=== PATIENT | male | born 1950 | race Caucasian/White ===

== ENCOUNTER → 2020-02-24 | Outpatient (CLI) | payer BC | LOC: ZCOL.LAB 17:21 | DX: Z01.89 Encounter for other specified special examinations (principal) ==

== ENCOUNTER → 2020-02-24 | Outpatient (CLI) | payer BC | LOC: ZCOL.LAB 17:19 | DX: Z01.89 Encounter for other specified special examinations (principal) ==

== ENCOUNTER → 2023-12-18 | Outpatient (CLI) | payer MEDICARE ==
[~2023-12-18] MED LIST: COZAAR100 MG PO; FLONASEALLERGY NS; GLUCOPHAGE500 MG/TAB PO; INDERAL LA160 MG PO; Iohexol 300 - 100 ML VIAL IV ONE; LIPITOR 40MG TA40 MG PO; NORVASC 5MG5 MG/TAB PO; TRICOR145 MG PO
== END ==
LOC: COL.RAD 13:01
DX: J84.10 Pulmonary fibrosis, unspecified (principal); J47.9 Bronchiectasis, uncomplicated; I51.7 Cardiomegaly
CPT/HCPCS: Q9967

== ENCOUNTER 2024-01-01 12:21 | Inpatient (IN) | payer MEDICARE ==
[~2024-01-01] VITALS: Ht 180.3 cm; Wt 65.6 kg
[2024-01-01 13:01] LABS: BASO % 0.4 % (0.0-2.0); EOS % 0.1 % (0.0-4.0); GRAN # 9.3 K/mm3 (1.4-6.5); GRAN % 88.2 % (42.2-75.2); HEMATOCRIT 46.4 % (42.0-52.0); HEMOGLOBIN 15.3 g/dl (13.5-18.0); LYMPH # 0.8 K/mm3 (1.2-3.4); LYMPH % 7.4 % (20.0-51.0); MEAN CELL VOLUME 91 fl (80.0-100.0); MEAN CORPUSCULAR HEMOGLOBIN 30 pg (27-31); MEAN CORPUSCULAR HGB CONC 33 g/dl (33.0-37.0); MONO # 0.4 K/mm3 (0.1-0.6); MONO % 3.5 % (1.7-9.3); PLATELET COUNT 282 K/mm3 (130-400); RED BLOOD COUNT 5.08 M/mm3 (4.20-5.60); REDCELL DISTRIBUTION WIDTH-CV 14.5 % (11.5-14.5)
[2024-01-01 13:12] LABS: ALANINE AMINOTRANSFERASE 12 U/L (0-55); ALBUMIN 3.6 g/dL (3.4-4.8); ALKALINE PHOSPHATASE 46 U/L (40-150); ANION GAP 12 mmol/L (7-16); AST,SGOT 19 U/L (5-34); BILIRUBIN,TOTAL 0.9 mg/dL (0.2-1.2); BLOOD UREA NITROGEN 18 mg/dL (8-26); CALCIUM 9.8 mg/dL (8.4-10.2); CHLORIDE 103 mEq/L (98-107); CREATININE, serum 0.81 mg/dL (0.72-1.25); GLUCOSE 116 mg/dL (70-99); POTASSIUM 3.8 mEq/L (3.5-4.5); SODIUM 142 mEq/L (136-145); TOTAL PROTEIN 7.1 g/dl (6.2-8.1)
[2024-01-01 13:20] LABS: TROPONIN-I < 0.010 ng/mL (0.00-0.033)
[2024-01-01] MEDS ORDERED: LIPITOR 40MG TA40 MG PO (14:53)
[2024-01-01] MEDS ORDERED: COZAAR100 MG PO (14:53)
[2024-01-01] MEDS ORDERED: INDERAL LA160 MG PO (14:59)
[2024-01-01] MEDS ORDERED: NORVASC 5MG5 MG/TAB PO (15:00)
[2024-01-01] MEDS ORDERED: GLUCOPHAGE500 MG/TAB PO (15:01)
[2024-01-01] MEDS ORDERED: TRICOR145 MG PO (15:01)
[2024-01-01] MEDS ORDERED: Ondansetron 4 MG/2 ML VIAL IV PRN ×2 (15:30→17:45)
[2024-01-01] MEDS ORDERED: Morphine 4 MG/ML VIAL IV PRN ×2 (15:30→18:00)
[2024-01-01] MEDS ORDERED: Acetaminophen 325 MG TAB PO PRN ×2 (15:30→17:45)
[2024-01-01] MEDS ORDERED: Melatonin 3 MG TAB PO PRN ×2 (15:30→18:00)
[2024-01-01 17:00] VITALS: BP_SYST 157
[2024-01-01] MEDS ORDERED: Insulin Lispro (HumaLOG) SQ SCH ×2 (17:00→21:00)
[2024-01-01 17:21] VITALS: BP 157/84; PULSE 62; TEMP 97.5
[2024-01-01] MEDS ORDERED: NS 1,000 ML IV SCH (17:45)
[2024-01-01 19:49] LABS: MAGNESIUM 1.5 mg/dL (1.6-2.6); PHOSPHOROUS 3.3 mg/dL (2.3-4.7)
[2024-01-01 20:16] VITALS: BP 151/81; PULSE 69; TEMP 97.7
[2024-01-01 21:00] VITALS: BP_SYST 156
[2024-01-01] MEDS ORDERED: Atorvastatin 40 MG TAB PO SCH ×2 (21:00)
[2024-01-01 23:40] VITALS: BP 156/81; PULSE 58; TEMP 97.5
[2024-01-02] VITALS (12 sets, daily range): BP systolic 133–172; BP diastolic 81–94; PULSE 51–69; TEMP 97.3–97.7
[2024-01-02 06:29] LABS: ALBUMIN 2.9 g/dL (3.4-4.8); BILIRUBIN,TOTAL 0.8 mg/dL (0.2-1.2); CALCIUM 8.9 mg/dL (8.4-10.2); CREATININE, serum 0.72 mg/dL (0.72-1.25); TOTAL PROTEIN 5.3 g/dl (6.2-8.1)
[2024-01-02 07:28] LABS: BASO % 0.3 % (0.0-2.0); EOS # 0.1 K/mm3 (0.0-0.7); EOS % 0.6 % (0.0-4.0); GRAN # 5.9 K/mm3 (1.4-6.5); GRAN % 66.3 % (42.2-75.2); HEMATOCRIT 41.2 % (42.0-52.0); HEMOGLOBIN 13.9 g/dl (13.5-18.0); LYMPH # 1.9 K/mm3 (1.2-3.4); LYMPH % 21.8 % (20.0-51.0); MEAN CELL VOLUME 90 fl (80.0-100.0); MEAN CORPUSCULAR HEMOGLOBIN 30 pg (27-31); MEAN CORPUSCULAR HGB CONC 34 g/dl (33.0-37.0); MONO % 10.7 % (1.7-9.3); PLATELET COUNT 222 K/mm3 (130-400); REDCELL DISTRIBUTION WIDTH-CV 14.4 % (11.5-14.5)
[2024-01-02] MEDS ORDERED: Glucagon 1 MG VIAL IM PRN (07:30)
[2024-01-02] MEDS ORDERED: Dextrose (Glucose) 15 GM (4 x 3.75 GM) Chewable TABLET PACK PO PRN (07:30)
[2024-01-02] MEDS ORDERED: Dextrose 50% Water 25 GM/50 ML SYRINGE IV PRN (07:30)
--- NOTE | 2024-01-02 08:16 | NUR ---
PATIENT SITTING ON EDGE OF BED THIS MORNING. COMPLAINS OF SLIGHT SHORTNESS OF BREATH. EXPEREINCING SLIGHT GRUNT ON EXPIRATION. NO C/O PAIN. SLIGHT DICOMFORT NOTED AT SITE OF CHEST TUBE.
[2024-01-02] MEDS ORDERED: Fenofibrate (Tricor) 145 MG **** subs to Fenofibrate (Lofibra) 162 MG PO SCH (09:00)
[2024-01-02] MEDS ORDERED: Fenofibrate 54 MG TABLET PO SCH ×2 (09:00)
[2024-01-02] MEDS ORDERED: Losartan 50 MG TAB PO SCH ×2 (09:00)
[2024-01-02] MEDS ORDERED: amLODIPine 5 MG TAB PO SCH ×2 (09:00)
--- NOTE | 2024-01-02 09:50 | NUR ---
NOTIFIED OF INCREASED RIGHT PNEUMO ON AM CXR. CHEST TUBE INPLACE TO 20 OF SUCTION, DOES NOT APPEAR TO BE CLAMPED OR KINKED, NO BUBBLING NOTED. NOTED 45CC OF BLOODY DRAINAGE IN CHEST TUBE. PATIENT DENIES SOA AT REST, DOES REPORT MILD SOA WITH ACTIVITY BUT HE SAID THAT HAS BEEN THE SAME, NO CHANGE. O2 SATS IN MID 90'S ON RA. VSS. HR IRREGULAR IN THE 50-60'S ON TELE. AIR EXCHANGE HEARD IN RIGHT POSTERIOR LUNG. HOSPITALIST ALSO AWARE. TO ROUND IN APPROX 1-1.5 HOURS. PATIENT RESTING UP IN BED WITH NO NEEDS, NO DISTRESS. STUDENT NURSE ALSO WORKING WITH PATIENT TODAY, SEE CHARTING.
--- NOTE | 2024-01-02 09:59 | NUR ---
Beef Grinder met with patient to discuss discharge planning. Patient lives alone in [place] and sees Dr. Hart for primary care. Patient obtains medications from [facility] and has a cane to assist with ambulation as needed. Patient uses no other DME and is independent with ADLS. Patient stated his only child, Fernandez (ph#[phone]) is his DPOA-HC. 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 Patient plans to return home at time of discharge. Discharge Plan: Home
[2024-01-02] MEDS ORDERED: Cetirizine 10 MG TAB PO SCH (11:00)
[2024-01-02] MEDS ORDERED: Fluticasone Nasal 50 MCG/Spray 16 GM BOTTLE NS SCH (11:00)
--- NOTE | 2024-01-02 11:18 | NUR ---
D: Initial visit: Rvda Master Certified Rv Technician stopped by room on rounds. Pt was resting and content. A: Pt is excited to get back home. Has worked in the area all his life. Retired a few years ago. First time in the hospital. He states he has no needs right now. Pt appreciated the visit. P: Rvda Master Certified Rv Technician informed the pt that if he needed anything from the agent telegrapher area to let his nurse know. Rvda Master Certified Rv Technician will follow up as needed.
--- NOTE | 2024-01-02 11:55 | NUR ---
AT BEDSIDE TO REPOSITION/MANIPULATE CHEST TUBE POSITION WELL ASPIRATED CLOTS, NOW CHEST TUBE APPEARS TO BE WORKING WELL. HAPPY WITH POSITION/FUNCTION/DRAINAGE, WILL CONTINUE TO MONITOR. PATIENT DENIES ANY CHEST PAIN OR SOA. VSS. CALL LIGHT IN REACH.
[2024-01-03] VITALS (12 sets, daily range): BP systolic 123–166; BP diastolic 68–85; PULSE 57–65; TEMP 96.8–97.7
--- NOTE | 2024-01-03 05:15 | NUR ---
ASSESSMENT COMPLETE FOR DOCUMENTATION BILLING CLERK. PT DENIED GENERAL PAIN, CHEST PAIN, PALPITATIONS, SOB, N,V,D OR DIZZINESS. pt'S CHEST TUBE DRAINING WITH NO ISSUES. CHEST TUBE DRESSING CDI. CALL LIGHT WITHIN REACH.
[2024-01-03 07:03] LABS: BASO # 0.1 K/mm3 (0.0-0.2); BASO % 1.1 % (0.0-2.0); EOS # 0.3 K/mm3 (0.0-0.7); EOS % 5.4 % (0.0-4.0); GRAN # 3.7 K/mm3 (1.4-6.5); GRAN % 59.7 % (42.2-75.2); HEMATOCRIT 40.3 % (42.0-52.0); HEMOGLOBIN 13.6 g/dl (13.5-18.0); LYMPH # 1.5 K/mm3 (1.2-3.4); LYMPH % 24.4 % (20.0-51.0); MEAN CELL VOLUME 89 fl (80.0-100.0); MEAN CORPUSCULAR HEMOGLOBIN 30 pg (27-31); MEAN CORPUSCULAR HGB CONC 34 g/dl (33.0-37.0); MEAN PLATELET VOLUME 10.2 fl (7.4-10.4); MONO # 0.6 K/mm3 (0.1-0.6); MONO % 9.1 % (1.7-9.3); PLATELET COUNT 177 K/mm3 (130-400); RED BLOOD COUNT 4.55 M/mm3 (4.20-5.60); REDCELL DISTRIBUTION WIDTH-CV 14.3 % (11.5-14.5)
[2024-01-03 07:22] LABS: ALBUMIN 2.9 g/dL (3.4-4.8); BILIRUBIN,TOTAL 0.6 mg/dL (0.2-1.2); CREATININE, serum 0.75 mg/dL (0.72-1.25); TOTAL PROTEIN 5.3 g/dl (6.2-8.1)
--- NOTE | 2024-01-03 08:24 | NUR ---
PATIENT ALERT AND ORIENTED X4. VSS. PATIENT HERE FOR SOB, CHEST TUBE PLACED AND IS TO SUCTION AT 20. DRESSING INTACT. PATIENT TOLERATING PO. AM MEDS ADMINNISTERED. PATIENT DENIES ANY PAIN AT THIS TIME. PATIENT DENIES ANY FURTHER NEEDS. CALL LIGHT IN REACH.
--- NOTE | 2024-01-03 11:59 | NUR ---
Data: Patient was sitting on side of bed; accepted Food Service Order Clerk visit offered during Food Service Order Clerk rounds. Patient reviewed his life, family, and reason for admission to hospital. Assessment: Patient is appreciative of the care he has received and of his Family, especially grandchildren. Plan of Care: Food Service Order Clerk provided supportive listening and prayer for healing. Chaplains will remain available as needed/requested while Patient is admitted to this hospital.
[2024-01-04] VITALS (12 sets, daily range): BP systolic 103–151; BP diastolic 64–80; PULSE 56–67; TEMP 97.4–97.9
[2024-01-04 04:51] LABS: BASO # 0.1 K/mm3 (0.0-0.2); EOS # 0.8 K/mm3 (0.0-0.7); EOS % 9.1 % (0.0-4.0); GRAN # 5.1 K/mm3 (1.4-6.5); GRAN % 61.2 % (42.2-75.2); HEMOGLOBIN 14.2 g/dl (13.5-18.0); LYMPH # 1.7 K/mm3 (1.2-3.4); MEAN CELL VOLUME 88 fl (80.0-100.0); MEAN CORPUSCULAR HEMOGLOBIN 30 pg (27-31); MEAN CORPUSCULAR HGB CONC 34 g/dl (33.0-37.0); MEAN PLATELET VOLUME 9.9 fl (7.4-10.4); MONO # 0.7 K/mm3 (0.1-0.6); MONO % 8.3 % (1.7-9.3); PLATELET COUNT 217 K/mm3 (130-400); RED BLOOD COUNT 4.78 M/mm3 (4.20-5.60); REDCELL DISTRIBUTION WIDTH-CV 14.4 % (11.5-14.5)
[2024-01-04 05:16] LABS: BILIRUBIN,TOTAL 0.6 mg/dL (0.2-1.2); CALCIUM 9.2 mg/dL (8.4-10.2); CREATININE, serum 0.75 mg/dL (0.72-1.25); POTASSIUM 4.2 mEq/L (3.5-4.5); TOTAL PROTEIN 5.8 g/dl (6.2-8.1)
--- NOTE | 2024-01-04 07:18 | NUR ---
PATIENT ALERT AND ORIENTED X4. VSS. PATIENT HERE FOR SOB/CHEST TUBE PLACEMENT. PATIENT DENIES ANY PAIN THIS MORNING. CHEST TUBE TO WATER SEAL AT 0400, TECH WAS FINISHING SCHEDULED CXR. IV TO RIGHT AC INT AND FLUSHES WELL. PATIENT RESTING IN BED, CALL LIGHT IN REACH.
--- NOTE | 2024-01-04 08:39 | NUR ---
ORDER TO PLACE CHEST TUBE BACK TO SUCTION AND REPEAT CXR AT 1300.
--- NOTE | 2024-01-04 23:59 | NUR ---
NURSING SHIFT ASSESSMENT COMPLETED. THE PATIENT WAS ALERT AND ORIENTED. THE CHEST TUBE WAS HOOKED TO SUCTION AND THE DIAL ON THE PLEUR EVAC WAS AT -20 CM OF SUCTION AND THE BELLOW WAS EXTENDED. ALL TUBING AND DRESSINGS WERE C/D/I. NO AIR LEAK NOTED. THE OUTPUT WAS SEROSANG IN COLOR. THE PATIENT DENIED PAIN OR DISCOMFORT AND WAS ABLE TO STAND AND ASSIST WITH REPOSITIONING. NO INSULIN WAS REQUIRED FOR HIS HS BLOOD GLUCOSE. THE PATIENT DENIED OTHER NEEDS. THE BED ALARM IS ON AND THE BED IS IN THE LOW POSITION. CALL LIGHT AND PERSONAL BELONGINGS WITHIN REACH.
[2024-01-05] VITALS (11 sets, daily range): BP systolic 96–115; BP diastolic 55–75; PULSE 57–77; TEMP 96.5–98
--- NOTE | 2024-01-05 07:23 | NUR ---
THE CHEST TUBE PLEUR EVAC SUCTION SETUP AND COLLECTION CHAMBER GOT TIPPED OVER DURING THE YIELD LOSS INSPECTOR ON 01/03-01/04. A NEW SETUP WAS EXCHANGED SO OUTPUT COULD BE CORRECTLY MEASURED. THE CHEST TUBE IS TO -20 CM SUCTION AND THE BELLOW IS OUT AND GENTLE BUBBLING IS NOTED. THE OUTPUT WAS NOT MEASURED PRIOR TO IT BEING TIPPED OVER SO NOTHING WAS CHARTED IN THE OUTPUT SECTION FOR THE CHEST TUBE FOR THIS SHIFT.
--- NOTE | 2024-01-05 08:00 | NUR ---
PATIENT IS A&O. VSS. 02 SATS IN LOW TO MID 90'S ON RA. DENIES SOA OR PAIN. CHEST TUBE TO 20 OF SUCTION. CHEST TUBE DRAINAGE SPILLED OVER INTO ALL THREE CHAMBER AND APPEARS IT MAY HAVE GOTTEN TIPED. DAY & HVAC/R SERVICE TECHNICIAN RN'S APPLIED NEW CHEST CANISTER WHICH IS STILL AT 20 OF SUCTION. NOTED RIGHT LUNG ZAPATA DEMINISHED IN BASES. HEAD TO TOE ASSESSMENT COMPLETE. AM MEDS GIVEN. TOLERATING AHA DIET. AM BS WAS 85, NO SSI REQUIRED. BREAKFAST TRAY NOW AT BEDSIDE. PATIENT USING URINAL AND WAS ABLE TO HAVE BM THIS AM. RIGHT AC IV TO INT. SCD'D CURRENTLY OFF. NO OTHER NEEDS AT THIS TIME. CALL LIGHT IN REACH.
--- NOTE | 2024-01-05 08:40 | NUR ---
RN NOTIFIED HOSPITALIST TEAM OF NO CXR ORDERED THIS AM, SEE NEW ORDER. HOSPITALIST TEAM NOW ROUNDING.
--- NOTE | 2024-01-05 08:50 | NUR ---
WITH PULMONOLOGY AT BEDSIDE TO EVAL & TREAT.
--- NOTE | 2024-01-05 10:25 | NUR ---
CALLED TO FOLLOW UP ON CXR, RADIOLOGY TO BE UP SOON THEY ARE AVAILABLE.
--- NOTE | 2024-01-05 11:14 | NUR ---
RADIOLOGY NOW AT BEDSIDE TO OBTAIN CXR
[2024-01-05] MEDS ORDERED: diphenhydrAMINE 2%/Zinc Acetate 0.1% Cream 28.3 GM TUBE TP SCH (18:00)
[2024-01-06] VITALS (9 sets, daily range): BP systolic 99–117; BP diastolic 63–73; PULSE 57–82; TEMP 97.4–97.8
--- NOTE | 2024-01-06 02:00 | NUR ---
NURSING SHIFT ASSESSMENT COMPLETED. THE PATIENT WAS ALERT AND ORIENTED. THE PATIENTS CHEST TUBE WAS TO -20 CM OF SUCTION, CLEAR TO YELLOW DRAINAGE NOTED. THE DRSG IS C/D/I. THE PATIENT REPORTED 2/10 DISCOMFORT PER THE PATIENT IN HIS RIGHT AXILLA AREA WHERE THE CHEST TUBE IS INSERTED. THE PATIENT REQUESTED TYLENOL WHICH WAS PROVIDED. THE PATIENT DENIED OTHER NEEDS. THE PLAN OF CARE AND EVENING MEDICATIONS WERE REVIEWED. THE BED IS IN THE LOW POSITION, THE CALL LIGHT AND PERSONAL BELONGINGS ARE WITHIN REACH.
--- NOTE | 2024-01-06 08:00 | NUR ---
PATIENT IS A&O. VSS. 02 SATS IN LOW TO MID 90'S ON RA. NO C/O SOA. PATIENT DOES HAVE PRODUCTIVE COUGH THAT HE REPORTS IS HARD TO GET THE MUCUS UP. SPUTUM IS CLEAR, THICK AND SMALL. PLAN IS TO TALK WITH HOSPITALIST TEAM ABOUT AN EXPECTORANT. CHEST TUBE TO -20 OF SUCTION WITH SMALL AMOUNTS OF YELLOW DRAINAGE NOTED. RIGHT MID & LOWER LOBES ARE DEMINISHED, ALL OTHER LUNGS NOTE GOOD AIR EXCHANGE. NO C/O N/V. IV TO INT. BREAKFAST TRAY ORDERED. AM MEDS GIVEN. HEAD TO TOE ASSESSMENT COMPLETE. NO OTHER NEEDS AT THIS TIME. CALL LIGHT IN REACH.
--- NOTE | 2024-01-06 09:30 | NUR ---
, PULMONOLOGY AT BEDSIDE DISCUSSING OPTIONS WITH PATIENT & SON. PATIENT'S CXR THIS AM SHOWED THE RT PNEUMO WAS SMALLER THAN YESTERDAYS STUDY, WHICH WAS A LITTLE ENCOURAGING. PATIENT UNDERSTANDS HIS PULM FIBROSIS IS MAKING IT HARD FOR HIS LUNGS TO HEAL. PLAN IS TO DISCUSS OPTION IN MORE DETAIL TOMORROW AFTER AM CXR.
--- NOTE | 2024-01-06 20:30 | NUR ---
PT IN BED, IS ALERT AND ORIENTED X4. HAS RT CHEST HEIMLICH TO -20CM SX PLEUROVAC SYMSTEM WITH ALEKSANDR EXTENDED. HAS INT TO RAC. PT IS ALERT AND ORIENTED X4. VOIDING PER URINAL. DENIES PAIN. TELEMETRY SHOWS SR.
[2024-01-07] VITALS (10 sets, daily range): BP systolic 104–117; BP diastolic 64–73; PULSE 60–68; TEMP 97.3–97.8
--- NOTE | 2024-01-07 04:00 | NUR ---
STANDS AT SIDE OF BED TO URINATE, NO OUTPUT FROM CHEST TUBE. ASSISTED BACK TO BED.
[2024-01-07 06:52] LABS: BASO # 0.1 K/mm3 (0.0-0.2); BASO % 1.1 % (0.0-2.0); EOS # 0.6 K/mm3 (0.0-0.7); GRAN # 3.5 K/mm3 (1.4-6.5); GRAN % 55.1 % (42.2-75.2); HEMATOCRIT 39.2 % (42.0-52.0); LYMPH # 1.4 K/mm3 (1.2-3.4); MEAN CELL VOLUME 92 fl (80.0-100.0); MEAN CORPUSCULAR HEMOGLOBIN 30 pg (27-31); MEAN CORPUSCULAR HGB CONC 33 g/dl (33.0-37.0); MEAN PLATELET VOLUME 10.3 fl (7.4-10.4); MONO # 0.7 K/mm3 (0.1-0.6); MONO % 11.3 % (1.7-9.3); PLATELET COUNT 177 K/mm3 (130-400); RED BLOOD COUNT 4.28 M/mm3 (4.20-5.60); REDCELL DISTRIBUTION WIDTH-CV 14.6 % (11.5-14.5)
[2024-01-07 07:03] LABS: CALCIUM 8.9 mg/dL (8.4-10.2); CREATININE, serum 0.75 mg/dL (0.72-1.25); POTASSIUM 4.2 mEq/L (3.5-4.5)
--- NOTE | 2024-01-07 10:50 | NUR ---
PT AT BEDSIDE TO WORK WITH PATIENT, SEE PT NOTES.
--- NOTE | 2024-01-07 12:22 | NUR ---
RADIOLOGY AT BEDSIDE TO OBTAIN CXR
--- NOTE | 2024-01-07 15:30 | NUR ---
ASSUMING PT CARE FROM MARU AVERY AT THIS TIME.
--- NOTE | 2024-01-07 21:23 | NUR ---
PT ASSISTED TO BSC HAS MOD BM. HAS RT HEIMLICH VALVE TO -20CM SX, HAS SMALL AMOUNT OF YELLOW FLUID IN TUBING. ASSISTED TO SITTING AT EDGE OF BED. NOTED REDDENED COCCYX AREA, NOT OPEN. VOIDING PER URINAL WITHOUT PROBLEM. PT HAS INT TO RAC. DRSG TO RT CHEST TUBE D/I. PT IS ALERT AND ORIENTED X4. DENIES PAIN AT THIS TIME. HAS LOOSE PHLEGM, THIN AND CLEAR THAT HE IS COUGHING UP. HAS DYSPNEA WITH EXERTION.
[2024-01-08] VITALS (14 sets, daily range): BP systolic 97–147; BP diastolic 60–88; PULSE 60–69; TEMP 97.4–97.8
--- NOTE | 2024-01-08 00:30 | NUR ---
PT SITTING AT SIDE OF BED, VOIDS PER URINAL AND REPOSITIONS UP IN BED. CHEST TUBE REMAINS TO SUCTION.
--- NOTE | 2024-01-08 04:00 | NUR ---
PT SITTING AT EDGE OF BED, VOIDS PER URINAL. ASSISTED UP IN BED. DENIES PAIN AT THIS TIME.
[2024-01-08] MEDS ORDERED: SODIUM CHLORIDE INTRAPLEUR ONE (09:00)
[2024-01-08] MEDS ORDERED: [UNRECOGNIZED DRUG - OTHER] INTRAPLEUR ONE (09:00)
[2024-01-08] MEDS ORDERED: DOXYCYCLINE HYCLATE IV SCH (09:00)
[2024-01-08] MEDS ORDERED: NS IV SCH (09:00)
--- NOTE | 2024-01-08 10:10 | NUR ---
Dr Johnson in with pt to administer Richard. Alfred at bedside as well
[2024-01-08] MEDS ORDERED: Morphine 4 MG/ML VIAL IV ONE (10:30)
--- NOTE | 2024-01-08 11:40 | NUR ---
Clamp removed from chest tube per order from Dr Johnson. Pt still having some complaints of pain on his right side/back. He stated it is not getting any worse. Pts son was at bedside, he was not present during this time. Call light within reach
--- NOTE | 2024-01-08 12:30 | NUR ---
Pt assisted to sitting on side of the bed. Pt reports that his pain is back to minimal. His son was present most of the morning, he has left for the afternoon. Pt denies wanting a full lunch, he did request some ice cream which I did get for him. No other needs, call light within reach
--- NOTE | 2024-01-08 18:45 | NUR ---
Pt has done well the rest of the afternoon. States pain is back to how it was prior to the dapto instillation. Pt states little to no pain at rest and that it only increases if he moves wrong. Pt tolerating diet without complaints
[2024-01-09] VITALS (11 sets, daily range): BP systolic 94–110; BP diastolic 55–66; PULSE 58–104; TEMP 97.5–97.7
--- NOTE | 2024-01-09 06:00 | NUR ---
Patient had an uneventful night. VS remain stable. Chest tube 20cm suction with a total of 10mls yellow fluid out total for shift. TELE reporting SR. INT to right AC flushes without difficulty. Denies current needs. Call light in reach. Will monitor.
--- NOTE | 2024-01-09 07:00 | NUR ---
Bedside shift report given to GENA Epps.
--- NOTE | 2024-01-09 09:37 | NUR ---
PT RESTING IN BED WITH NO PAIN WHEN STILL AND 5/10 PAIN WITH MOVEMENT. CHEST TUBE DRESSING CLEAN AND DRY, 20 SUCTION AND 2 CM WITH BUBBLING. TOLERATING DEIT WELL, PRODUCTIVE COUGH. COUGH AND DEEP BREATHING ENCOURAGED. NO NEEDS AT THIS TIME. WILL CONTINUE TO MONITOR.
--- NOTE | 2024-01-09 15:38 | NUR ---
parks worker notes PT/OT were recommending home health. DAMION met with patient and son, Fernandez, to discuss home health. SW provided the [employer] list of options for home health in his area. Patient reports he is uncertain he would needs these services and currently plans to go to Fernandez's house for awhile. SW explained if he declined home health and wanted to establish it at a later date, he could have his PCP send in a referral for him to the home health agency of his choice. Patient and son understood. SW was notified earlier that patient may be discharging either today or tomorrow. SW reviewed the important message from medicare with patient. Lizandro understood and signed. DAMION made a copy, placed original in chart, provided copy to patient. Discharge plan: Home
--- NOTE | 2024-01-09 19:00 | NUR ---
PT STABLE AT THIS TIME. CHEST TUBE SITE CLEAN, DRY AND INTACT. NO OUTPUT ON DAYSHIFT. PT ON ROOM AIR. NOT SIGN OF DISTRESS AT THIS TIME. CONTINUE WITH PLAN OF CARE.
[2024-01-10] VITALS: BP 105/66; PULSE 58; TEMP 97.8
[2024-01-10 01:00] VITALS: BP_SYST 105
[2024-01-10 03:17] VITALS: BP 104/64; PULSE 56; TEMP 97.4
[2024-01-10 05:18] VITALS: BP_SYST 104
--- NOTE | 2024-01-10 07:40 | NUR ---
NO CHEST TUBE OUT PUT OVER NIGHT. PT REMAINS STABLE ON ROUNDS. NO SIGN OF DISTRESS AT THIS TIME.
[2024-01-10 07:44] VITALS: BP 101/65; PULSE 58; TEMP 98
[2024-01-10 08:00] VITALS: BP_SYST 101
--- NOTE | 2024-01-10 08:00 | NUR ---
PATIENT IS A&O. VSS. 02 SATS IN MID 90'S ON RA. CHEST TUBE TO -20 SUCTION. NO C/O SOA. NO C/O N/V. TOLERATING GENERAL DIET. AM MEDS GIVEN. HEAD TO TOE ASSESSMENT COMPLETE. PATIENT SITTING AT BEDSIDE WAITING FOR BREAKFAST TRAY. ASSISTED PATIENT TO GET CLEANED UP BEFORE COMES IN PER PATIENT. NO OTHER NEEDS. CALL LIGHT IN REACH.
--- NOTE | 2024-01-10 10:15 | NUR ---
AT BEDSIDE. CHEST TUBE OFF WALL SUCTION. PLAN TO CHANGE HEIMLICH VALVE BEFORE DISCHARGE. FAMILY CASEWORKER NOTIFIED TO BRING UP NEW HEIMLICH KIT. PATIENT IS EAGER TO GET HOME TODAY.
--- NOTE | 2024-01-10 11:33 | NUR ---
DAMION notified that patient is discharging home today and will need HH. DAMION met with patient and son to discuss discharge. Discussed Medicare.gov list of HH providers, son Fernandez ([phone]) chose [facility]. He also stated that patient will be staying with him at his house for a while and provided address of [address] [place] [address]. Son to transport patient to his home. DAMION faxed clinicals and discharge orders to [facility] and notified to contact son to arrange admission. Discharge plan: Home with son and HH
--- NOTE | 2024-01-10 11:40 | NUR ---
AT BEDSIDE, CHANGED HEIMLICH VALVE. ALL PROVIDERS CLEARED PATIENT FOR DISCHARGE HOME TODAY WITH HOME HEALTH AND HEIMLICH VALVE INPLACE. OXYGEN SATS IN MID 90'S ON RA. NO SOA OR DISTRESS. SON AT BEDSIDE.
[2024-01-10] MEDS ORDERED: FLONASEALLERGY NS (11:57)
--- NOTE | 2024-01-10 12:30 | NUR ---
PATIENT DISCHARGING HOME W/ HOME HEALTH WITH HEIMLICH VALVE INPLACE, PAPER SLING GIVEN. GAVE DISCHARGE INSTRUCTIONS INSTRUCTIONS, DISCUSSED F/U APTS, AND ANSWERED QUESTIONS. IV SITE DC'D AND COVERED WITH COBAN. TELE OFF. PATIENT IS DRESSED, PACKED, AND ESCORTED OUT VIA WC TO PERSONAL VEHICLE WITH SON.
== END 2024-01-10 12:30 | disposition home health service (06) | DRG 201 ==
LOC: COL.ER 12:21 → SURG 16:46
PROVIDERS: Emergency Medicine; Nurse Practitioner Family; Physician Assistant; ADMIT Internal Medicine
DX: J93.12 Secondary spontaneous pneumothorax (principal); J84.10 Pulmonary fibrosis, unspecified; I10 Essential (primary) hypertension; E78.5 Hyperlipidemia, unspecified; E11.9 Type 2 diabetes mellitus without complications; Z79.84 Long term (current) use of oral hypoglycemic drugs; R25.1 Tremor, unspecified; Z87.891 Personal history of nicotine dependence
CPT/HCPCS: A7041; G0378; J2270; J7030

== ENCOUNTER 2024-04-30 09:45 | Emergency (ER) | payer MEDICARE ==
[~2024-04-30] VITALS: Ht 182.9 cm; Wt 65.9 kg
[~2024-04-30 09:45] MED LIST changes: -Iohexol 300 - 100 ML VIAL IV ONE
[2024-04-30 09:51] VITALS: TEMP 97.2
[2024-04-30] MEDS ORDERED: NS 1,000 ML IV ONE (10:15)
[2024-04-30] MEDS ORDERED: PULMICORT180 MCG/Ac IH (10:22)
[2024-04-30 10:52] LABS: BASO # 0.1 K/mm3 (0.0-0.2); BASO % 1.1 % (0.0-2.0); EOS # 0.5 K/mm3 (0.0-0.7); EOS % 5.3 % (0.0-4.0); GRAN # 6.6 K/mm3 (1.4-6.5); HEMATOCRIT 44.8 % (42.0-52.0); HEMOGLOBIN 14.7 g/dl (13.5-18.0); LYMPH # 1.1 K/mm3 (1.2-3.4); LYMPH % 12.1 % (20.0-51.0); MEAN CELL VOLUME 93 fl (80.0-100.0); MEAN CORPUSCULAR HEMOGLOBIN 30 pg (27-31); MEAN CORPUSCULAR HGB CONC 33 g/dl (33.0-37.0); MONO # 0.7 K/mm3 (0.1-0.6); MONO % 8.2 % (1.7-9.3); PLATELET COUNT 299 K/mm3 (130-400); RED BLOOD COUNT 4.84 M/mm3 (4.20-5.60); REDCELL DISTRIBUTION WIDTH-CV 13.4 % (11.5-14.5)
[2024-04-30 11:13] LABS: ALANINE AMINOTRANSFERASE 11 U/L (0-55); ALBUMIN 3.4 g/dL (3.4-4.8); ALKALINE PHOSPHATASE 47 U/L (40-150); ANION GAP 9 mmol/L (7-16); AST,SGOT 18 U/L (5-34); BILIRUBIN,TOTAL 0.8 mg/dL (0.2-1.2); BLOOD UREA NITROGEN 10 mg/dL (8-26); CALCIUM 9.5 mg/dL (8.4-10.2); CHLORIDE 99 mEq/L (98-107); GLUCOSE 87 mg/dL (70-99); SODIUM 135 mEq/L (136-145); TOTAL PROTEIN 6.5 g/dl (6.2-8.1)
[2024-04-30 11:26] LABS: TROPONIN-I < 0.010 ng/mL (0.00-0.033)
[2024-04-30 12:55] VITALS: BP 133/84; PULSE 60
== END 2024-04-30 13:00 | disposition home or self-care (01) ==
LOC: COL.ER 09:45
PROVIDERS: Personal Emergency Response Attendant
DX: J93.9 Pneumothorax, unspecified (principal); R19.7 Diarrhea, unspecified; R53.1 Weakness; Z87.891 Personal history of nicotine dependence
CPT/HCPCS: J7030